=== PATIENT | male | born 1965 | race Caucasian/White ===

== ENCOUNTER 2024-01-21 10:18 | Outpatient (OUT) | payer OTHER, SELFPAY ==
--- NOTE | 2024-01-21 | XR_ITS ---
The [address] [address] Patient Name: ARELY TURNER MRN: [id number] date: 1965 Sex: M Assigned Patient Location: Current Patient Location: Accession/Order Number: [id number] Exam Date: 01/21/2024 10:19 Report Date: 01/22/2024 05:56 At the request of: HORTENCIA MEYERS Procedure: XR ankle LT min 3V PROCEDURE: XR foot LT min 3V, XR ankle LT min 3V HISTORY: LEFT FOOT PAIN ; medial ankle pain and swelling COMPARISON: None. FINDINGS: BONES:No fracture, acute abnormality, or significant arthropathy. SOFT TISSUES:No visible soft tissue swelling. EFFUSION:None visible. OTHER: Negative. XR/XR ankle LT min 3V IMPRESSION: 1. No acute bone abnormality or significant degenerative joint disease. Electronically authenticated by: KAYLIN MC Date: 01/22/2024 05:56
--- NOTE | 2024-01-21 | XR_ITS ---
The [address] [address] Patient Name: ARELY TURNER MRN: [id number] date: 1965 Sex: M Assigned Patient Location: Current Patient Location: Accession/Order Number: [id number] Exam Date: 01/21/2024 10:19 Report Date: 01/22/2024 05:56 At the request of: HORTENCIA MEYERS Procedure: XR foot LT min 3V PROCEDURE: XR foot LT min 3V, XR ankle LT min 3V HISTORY: LEFT FOOT PAIN ; medial ankle pain and swelling COMPARISON: None. FINDINGS: BONES:No fracture, acute abnormality, or significant arthropathy. SOFT TISSUES:No visible soft tissue swelling. EFFUSION:None visible. OTHER: Negative. XR/XR foot LT min 3V IMPRESSION: 1. No acute bone abnormality or significant degenerative joint disease. Electronically authenticated by: KAYLIN MC Date: 01/22/2024 05:56
== END 2024-01-21 10:19 | disposition home or self-care (01) ==
PROVIDERS: Visit Provider Physician Assistant
DX: M79.672 Pain in left foot (principal); M25.572 Pain in left ankle and joints of left foot
CPT/HCPCS: 73610; 73630